=== PATIENT | female | born 1985 | race Caucasian/White ===

== ENCOUNTER → 2019-02-01 12:30 | Outpatient (CLI) | payer OTHER, BC, SELFPAY ==
[2019-02-01 12:51] LABS: Influenza A and B by PCR Rapid Negative (Negative)
== END ==
PROVIDERS: Family Provider Family Medicine; PCP Family Medicine; Visit Provider Physician Assistant
DX: R68.89 Other general symptoms and signs (principal)
CPT/HCPCS: 87400; 87502

== ENCOUNTER → 2020-01-04 09:41 | Outpatient (CLI) | payer BC, SELFPAY ==
--- NOTE | 2020-01-04 09:43 | DI.RAD.S_ITS ---
PROCEDURE: XR SHOULDER RT MIN 2V INDICATIONS: Right shoulder pain, no trauma TECHNIQUE: 3 views of the shoulder were acquired. COMPARISON: None. FINDINGS: Bones: No fracture. Scattered degenerative subchondral sclerosis and spurring. Soft tissues: No suspicious soft tissue calcifications. IMPRESSION: Mild degenerative changes. If the patient's pain or other symptoms persist, consider further evaluation with MRI Dictated by: Erwin Laureano M.D. on 01/04/2020 at 10:23 Approved by: Erwin Laureano M.D. on 01/04/2020 at 10:27
== END ==
PROVIDERS: Family Provider Family Medicine; PCP Family Medicine; Referring Provider Family Medicine; Visit Provider Registered Nurse Diabetes Educator
DX: S46.911A Strain of unspecified muscle, fascia and tendon at shoulder and upper arm level, right arm, initial encounter (principal); M25.511 Pain in right shoulder
CPT/HCPCS: 73030

== ENCOUNTER → 2020-08-04 09:39 | Outpatient (CLI) | payer BC, SELFPAY ==
[2020-08-04 11:50] LABS: BUN Creatinine Ratio 12.6 (6-22); Blood Urea Nitrogen 12 mg/dL (7-17); Carbon Dioxide 29 mmol/L (22-32); Chloride 104 mmol/L (98-107); Cholesterol 233 mg/dL (140-199); Estimated Glomerular Filt Rate > 60.0 mL/min (>60); Glucose 95 mg/dL (70-100); HDL Cholesterol 53 mg/dL (40-60); HEMOLYSIS < 15 (0-50); LDL Cholesterol Calculated 163 mg/dL (<100); Potassium 3.9 mmol/L (3.4-5.1); Sodium 138 mmol/L (137-145); Triglycerides 83 mg/dL (35-150)
== END ==
PROVIDERS: Family Provider Family Medicine; PCP Family Medicine; Referring Provider Family Medicine; Visit Provider Family Medicine
DX: E28.2 Polycystic ovarian syndrome (principal); E66.01 Morbid (severe) obesity due to excess calories
CPT/HCPCS: 36415; 80048; 80061

== ENCOUNTER → 2021-05-28 13:07 | Outpatient (CLI) | payer OTHER, SELFPAY ==
--- NOTE | 2021-05-28 13:08 | DI.RAD.S_ITS ---
PROCEDURE: XR FOOT RT MIN 3V INDICATIONS: heavy object fell on foot TECHNIQUE: 3 views of the foot were acquired. COMPARISON: [facility], , FOOT 3V RIGHT, 01/24/2012, 15:12. FINDINGS: Bones: No fractures or dislocations. No suspicious bony lesions. Large plantar calcaneal bone spur. Mild midfoot osteoarthritis. Soft tissues: No tibiotalar joint effusion. Achilles tendon appears normal. IMPRESSION: No fracture. No acute osseous lesion. If symptoms and/or clinical suspicion for pathology persists, further assessment with repeat radiographs (7-10 days) or advanced imaging (e.g. CT, MRI or bone scan) should be considered. Dictated by: Kenisha Barrientos MD, PhD on 05/28/2021 at 13:28 Approved by: Kenisha Barrientos MD, PhD on 05/28/2021 at 13:29
== END ==
PROVIDERS: Family Provider Family Medicine; PCP Family Medicine; Referring Provider Nurse Practitioner Family; Visit Provider Nurse Practitioner Family
DX: R22.41 Localized swelling, mass and lump, right lower limb (principal); M77.31 Calcaneal spur, right foot; M19.071 Primary osteoarthritis, right ankle and foot
CPT/HCPCS: 73630

== ENCOUNTER → 2022-03-21 08:40 | Outpatient (CLI) | payer OTHER, SELFPAY ==
[2022-03-21 09:32] LABS: Add Manual Diff / Slide Review NO; Basophils Absolute Auto 0 /uL (0-100); Basophils Percent Auto 0.7 % (0-2); Eosinophils Absolute Auto 100 /uL (0-450); Hematocrit 38.4 % (36-46); Hemoglobin 12.5 g/dL (12.0-16.0); Lymphocytes Absolute Auto 1600 /uL (1100-4500); Lymphocytes Percent Auto 24.9 % (25-40); Mean Corpuscular HGB Conc 32.7 % (30-36); Mean Corpuscular Hemoglobin 29.1 PG (26-34); Monocytes Absolute Auto 500 /uL (0-900); Monocytes Percent Auto 7.5 % (3-14); Neutrophils Absolute Auto 4100 /uL (1500-7000); Neutrophils Percent Auto 64.9 % (50-75); Platelet Count 332 X10^3/uL (150-400); Red Blood Cell Count 4.31 X10^6/uL (4.0-5.2); Red Cell Distribution Width 13.6 % (11.6-14.8); White Blood Cell Count 6.3 X10^3/uL (4.5-11.0)
[2022-03-21 10:01] LABS: Alanine Aminotransferase 31 IU/L (<35); Albumin 3.8 g/dL (3.5-5.0); Albumin Globulin Ratio 1.4 (1.0-2.8); Alkaline Phosphatase 54 U/L (38-126); Aspartate Aminotransferase 21 IU/L (14-36); BUN Creatinine Ratio 10.7 (6-22); Bilirubin Total 0.2 mg/dL (0.2-1.3); Blood Urea Nitrogen 9 mg/dL (7-17); Calcium 9.5 mg/dL (8.4-10.2); Carbon Dioxide 24 mmol/L (22-32); Chloride 106 mmol/L (98-107); Cholesterol 187 mg/dL (140-199); Estimated Glomerular Filt Rate > 60 mL/min (>60); Globulin 2.8 g/dL (1.7-4.1); Glucose 126 mg/dL (70-100); HDL Cholesterol 42 mg/dL (40-60); HEMOLYSIS < 15 (0-50); LDL Cholesterol Calculated 126 mg/dL (<100); Potassium 4.2 mmol/L (3.4-5.1); Sodium 137 mmol/L (137-145); Total Protein 6.6 g/dL (6.3-8.2); Triglycerides 94 mg/dL (35-150)
[2022-03-21 10:26] LABS: TSH w/ Reflex to FT4 1.18 uIU/mL (0.47-4.68)
[2022-03-22 09:12] LABS: Insulin Level Total 72.5 uIU/mL (2.6-24.9)
== END ==
PROVIDERS: Family Provider Family Medicine; PCP Family Medicine; Referring Provider Family Medicine; Visit Provider Family Medicine
DX: Z13.29 Encounter for screening for other suspected endocrine disorder (principal); E78.2 Mixed hyperlipidemia; R73.01 Impaired fasting glucose; E28.2 Polycystic ovarian syndrome; E88.81 Metabolic syndrome and other insulin resistance; Z13.0 Encounter for screening for diseases of the blood and blood-forming organs and certain disorders involving the immune mechanism
CPT/HCPCS: 36415; 80053; 80061; 83036; 83525; 84443; 85025

== ENCOUNTER 2022-06-12 14:27 | Emergency (ER) | payer OTHER, SELFPAY ==
[2022-06-12 14:37] VITALS: BP 172/91; PULSE 85; RESP 18; TEMP 36.9; O2SAT 99; BMI 39.3
--- NOTE | 2022-06-12 14:42 | DI.RAD.S_ITS ---
PROCEDURE: XR CHEST 1V INDICATIONS: chest pain TECHNIQUE: One view of the chest was acquired. COMPARISON: None. FINDINGS: Surgical changes and devices: None. Lungs and pleura: Lungs are clear. No pleural effusions or pneumothorax. Mediastinum: Mediastinal contours appear normal. Heart size is normal. Retrocardiac moderate hiatal hernia Bones and chest wall: No suspicious bony lesions. Overlying soft tissues appear unremarkable. IMPRESSION: Moderate hiatal hernia. No acute cardiopulmonary findings Approved by: Oscar Phillips M.D. on 06/12/2022 at 14:21
[2022-06-12 14:58] LABS: Add Manual Diff / Slide Review NO; Basophils Absolute Auto 100 /uL (0-100); Basophils Percent Auto 0.8 % (0-2); Eosinophils Absolute Auto 100 /uL (0-450); Hematocrit 40.4 % (36-46); Hemoglobin 13.3 g/dL (12.0-16.0); Lymphocytes Absolute Auto 1800 /uL (1100-4500); Lymphocytes Percent Auto 20.6 % (25-40); Mean Corpuscular HGB Conc 32.9 % (30-36); Mean Corpuscular Hemoglobin 29.4 PG (26-34); Mean Corpuscular Volume 89.5 fL (80-100); Monocytes Absolute Auto 800 /uL (0-900); Monocytes Percent Auto 9.5 % (3-14); Neutrophils Absolute Auto 6000 /uL (1500-7000); Neutrophils Percent Auto 68.1 % (50-75); Platelet Count 290 X10^3/uL (150-400); Red Blood Cell Count 4.52 X10^6/uL (4.0-5.2); Red Cell Distribution Width 15.5 % (11.6-14.8); White Blood Cell Count 8.8 X10^3/uL (4.5-11.0)
[2022-06-12 15:06] LABS: INR 1.1 (0.9-1.3); Prothrombin Time 12.7 SECONDS (10.1-12.7)
[2022-06-12 15:09] LABS: PTT Partial Thromboplastin Tim 28 SECONDS (26-36)
[2022-06-12 15:14] LABS: Alanine Aminotransferase 27 IU/L (<35); Albumin 4.1 g/dL (3.5-5.0); Albumin Globulin Ratio 1.2 (1.0-2.8); Alkaline Phosphatase 54 U/L (38-126); Aspartate Aminotransferase 23 IU/L (14-36); BUN Creatinine Ratio 14.5 (6-22); Bilirubin Total 0.3 mg/dL (0.2-1.3); Blood Urea Nitrogen 10 mg/dL (7-17); Calcium 9.4 mg/dL (8.4-10.2); Carbon Dioxide 23 mmol/L (22-32); Chloride 103 mmol/L (98-107); Creatine Kinase 34 U/L (30-135); Estimated Glomerular Filt Rate > 60 mL/min (>60); Globulin 3.4 g/dL (1.7-4.1); Glucose 113 mg/dL (70-100); HEMOLYSIS < 15 (0-50); Lipase 1526 U/L (23-300); Magnesium 1.9 mg/dL (1.6-2.3); Potassium 3.8 mmol/L (3.4-5.1); Sodium 138 mmol/L (137-145); Total Protein 7.5 g/dL (6.3-8.2)
[2022-06-12 15:25] LABS: Troponin I < 0.012 ng/mL (0.01-0.034)
[2022-06-12 17:18] VITALS: PULSE 85; O2SAT 97
[2022-06-12 17:19] VITALS: BP 172/97; PULSE 81; O2SAT 99
[2022-06-12 17:30] VITALS: PULSE 79; RESP 18; O2SAT 100
--- NOTE | 2022-06-12 17:32 | DI.US.S_ITS ---
PROCEDURE: US ABDOMEN LIMITED INDICATIONS: ELEVATED LIPASE TECHNIQUE: Real-time scanning was performed of the abdominal and retroperitoneal organs, with image documentation. COMPARISON: None. FINDINGS: Liver: Hyperdense nodule in liver measures 1.4 cm in the left and 1.2 cm in the right hepatic lobe, consistent with hemangioma. Gallbladder: Cholecystectomy Common Bile Duct: 5.9 mm. Pancreas: Unremarkable as visualized IMPRESSION: 1. Small hepatic hemangiomas. Otherwise unremarkable right upper quadrant ultrasound Approved by: Oscar Phillips M.D. on 06/12/2022 at 17:40
--- NOTE | 2022-06-12 17:33 | ED_ITS ---
HPI - Chest Pain General Chief Complaint: Chest Pain Stated Complaint: Chest pain, High BP/HR Time Seen by Provider: 06/12/22 17:27 Source: patient Mode of arrival: Ambulatory Limitations: no limitations History of Present Illness HPI narrative: 37-year-old female smoker with history of GERD and PCOS presents with a chief complaint of a dry cough and some shortness of breath since probably March as well as rapid heart rate earlier in the course of the day up to as high as 120. She states it went away when she was in the waiting room and has not returned. She denies any chest pain and has no nausea or vomiting. She denies any fever or chills. She denies abdominal pain diarrhea or constipation. She has no dysuria, frequency or urgency. She denies any history of blood clot, lower extremity pain, swelling or redness but does have a Mirena IUD and has traveled recently. Related Data Home Medications Medication Instructions Recorded Confirmed cetirizine 10 mg capsule (Zyrtec) 10 mg PO DAILY 11/24/19 08/04/20 cholecalciferol (vitamin D3) 50 50 mcg PO DAILY 11/24/19 08/04/20 mcg (2,000 unit) capsule (Vitamin D3) omeprazole 20 mg capsule,delayed 20 mg PO DAILY 11/24/19 08/04/20 release tumeric PO 11/24/19 08/04/20 levonorgestrel 21 mcg/24 hours (8 intrauterine 07/07/20 08/04/20 yrs) 52 mg intrauterine device (Mirena) Previous Rx's Medication Instructions Recorded spironolactone 50 mg tablet 50 mg PO BID #90 tabs 08/08/20 albuterol sulfate 90 mcg/actuation 2 puff inhalation Q4-6H PRN 03/08/21 aerosol inhaler bronchospasm #8.5 grams Allergies Allergy/AdvReac Type Severity Reaction Status Date / Time No Known Drug Allergies Allergy Verified 08/04/20 09:23 Review of Systems Review of Systems Narrative: GENERAL: See HPI HEENT: Denies sinus pain, ear pain, sore throat, difficulty swallowing, dizziness. RESPIRATORY: See HPI CARDIOVASCULAR: See HPI GASTROINTESTINAL: See HPI : Denies dysuria, frequency, incontinence, hematuria, urinary retention. MUSCULOSKELETAL: denies weakness, joint pain, or bony pain SKIN: Denies rash, skin lesions, or other NEUROLOGIC: Denies weakness, headache, numbness, change in speech, confusion, seizures, incoordination. PSYCHIATRIC: No concerning psychosocial issues. 12 point review of systems is negative except for those stated above Patient History Medical History Acne Anxiety (~1998) Carpal tunnel syndrome (~2009) Chicken pox (~1991) Depression (~1998) GERD (gastroesophageal reflux disease) (~1999) Irregular menstrual cycle (~1999) Painful menstrual periods (~1999) PCOS (polycystic ovarian syndrome) Surgical History Anesthesia History of carpal tunnel repair (~2009) Status post cholecystectomy (~2009) Family History Child Age: 12 WPW (Qugse-Xnikhhqjg-Cerom syndrome) Father Age: 65 Heart disease Grandmother Age: 80 Essential hypertension, hypertension with unspecified goal High cholesterol Mother Age: 64 High cholesterol Grandmother Age: 89 High cholesterol Grandfather Cancer Social History Smoking Status: Current some day smoker alcohol intake: current (2 -3 times a week) substance use type: does not use Smoking Status: Current some day smoker tobacco type: cigarettes alcohol intake frequency: holidays/special occasions only Substance Use Type: marijuana Exam Narrative Exam Narrative: GENERAL: [37] year old patient appears stated age. Well-developed patient, in mild distress. HEAD: Atraumatic. Normocephalic. EYES: Pupils equal round and reactive. Extraocular motions intact. No scleral icterus. No injection or drainage. ENT: Nose without bleeding, purulent drainage. Throat without erythema, tonsillar hypertrophy or exudate. Airway patent. NECK: Trachea midline. Non tender CARDIOVASCULAR: Regular rate and rhythm without murmurs, gallops, or rubs. RESPIRATORY: Clear to auscultation. Breath sounds equal bilaterally. No wheezes, rales, or rhonchi. GASTROINTESTINAL: Abdomen soft, non-tender, nondistended. EXTREMITIES: No edema or joint tenderness. BACK: Nontender without deformity or crepitance. No flank tenderness. NEURO: AOx3. SKIN: No rash or erythema of visible areas Initial Vital Signs Initial Vital Signs: Vital Signs Temperature 98.4 F 06/12/22 14:37 Pulse Rate 85 06/12/22 14:37 Respiratory Rate 18 06/12/22 14:37 Blood Pressure 172/91 H 06/12/22 14:37 Pulse Oximetry 99 06/12/22 14:37 Oxygen Delivery Method 06/12/22 14:37 Course Orders Ordered: ED Orders 06/12/22 14:42 XR chest 1V Stat EKG-12 Lead Stat 06/12/22 14:50 Complete Blood Count AUTO DIFF Stat Comprehensive Metabolic Panel Stat D Dimer Stat Lipase Stat Magnesium Stat Partial Thromboplastin Time Stat Prothrombin Time INR Stat Troponin & CK Cardiac Panel Stat 06/12/22 17:24 COVID19 -Nasal RAPID/Pre-Proc Stat 06/12/22 17:32 US abdomen limited Stat Discontinued Medications Aspirin (Aspirin 81 Mg Chew Tab) 324 mg PO NOW ONE Stop: 06/12/22 14:43 Vital Signs Vital signs: Vital Signs - 8 hr 06/12/22 14:37 06/12/22 17:18 06/12/22 17:19 Temperature 98.4 F Pulse Rate 85 85 81 Respiratory Rate 18 Blood Pressure 172/91 H Pulse Oximetry 99 97 99 Oxygen Delivery Method Room Air 06/12/22 17:19 06/12/22 17:30 Temperature Pulse Rate 79 Respiratory Rate 18 Blood Pressure 172/97 H Pulse Oximetry 100 Oxygen Delivery Method MDM - Chest Pain Lab Data 06/12/22 14:50 06/12/22 14:50 Labs: Lab Results 06/12/22 06/12/22 06/12/22 Range/Units 14:50 14:50 14:50 WBC 8.8 (4.5-11.0) X10^3/uL RBC 4.52 (4.0-5.2) X10^6/uL Hgb 13.3 (12.0-16.0) g/dL Hct 40.4 (36-46) % MCV 89.5 (80-100) fL MCH 29.4 (26-34) PG MCHC 32.9 (30-36) % RDW 15.5 H (11.6-14.8) % Plt Count 290 (150-400) X10^3/uL Neut % (Auto) 68.1 (50-75) % Lymph % (Auto) 20.6 L (25-40) % Henderson % (Auto) 9.5 (3-14) % Eos % (Auto) 1.0 L (2-4) % Baso % (Auto) 0.8 (0-2) % Neut # (Auto) 6000 (2013-1178) /uL Lymph # (Auto) 1800 (3126-2055) /uL Henderson # (Auto) 800 (0-900) /uL Eos # (Auto) 100 (0-450) /uL Baso # (Auto) 100 (0-100) /uL PT 12.7 (10.1-12.7) SECONDS INR 1.1 (0.9-1.3) APTT 28 (26-36) SECONDS D-Dimer (<500) ng/ml Sodium 138 (137-145) mmol/L Potassium 3.8 (3.4-5.1) mmol/L Chloride 103 (98-107) mmol/L Carbon Dioxide 23 (22-32) mmol/L BUN 10 (7-17) mg/dL Creatinine 0.69 (0.52-1.04) mg/dL Estimated GFR > 60 (>60) mL/min BUN/Creatinine Ratio 14.5 (6-22) Glucose 113 H (70-100) mg/dL Calcium 9.4 (8.4-10.2) mg/dL Magnesium 1.9 (1.6-2.3) mg/dL Total Bilirubin 0.3 (0.2-1.3) mg/dL AST 23 (14-36) IU/L ALT 27 (<35) IU/L Alkaline Phosphatase 54 (38-126) U/L Total Creatine Kinase 34 (30-135) U/L CK-MB (CK-2) TNP CK-MB (CK-2) Rel Index TNP Troponin I < 0.012 (0.01-0.034) ng/mL Total Protein 7.5 (6.3-8.2) g/dL Albumin 4.1 (3.5-5.0) g/dL Globulin 3.4 (1.7-4.1) g/dL Albumin/Globulin Ratio 1.2 (1.0-2.8) Lipase 1526 H (23-300) U/L SARS-CoV-2 (PCR) (Negative) 06/12/22 06/12/22 Range/Units 14:50 17:24 WBC (4.5-11.0) X10^3/uL RBC (4.0-5.2) X10^6/uL Hgb (12.0-16.0) g/dL Hct (36-46) % MCV (80-100) fL MCH (26-34) PG MCHC (30-36) % RDW (11.6-14.8) % Plt Count (150-400) X10^3/uL Neut % (Auto) (50-75) % Lymph % (Auto) (25-40) % [place] % (Auto) (3-14) % Eos % (Auto) (2-4) % Baso % (Auto) (0-2) % Neut # (Auto) (3006-1170) /uL Lymph # (Auto) (3032-9635) /uL Henderson # (Auto) (0-900) /uL Eos # (Auto) (0-450) /uL Baso # (Auto) (0-100) /uL PT (10.1-12.7) SECONDS INR (0.9-1.3) APTT (26-36) SECONDS D-Dimer 450 (<500) ng/ml Sodium (137-145) mmol/L Potassium (3.4-5.1) mmol/L Chloride (98-107) mmol/L Carbon Dioxide (22-32) mmol/L BUN (7-17) mg/dL Creatinine (0.52-1.04) mg/dL Estimated GFR (>60) mL/min BUN/Creatinine Ratio (6-22) Glucose (70-100) mg/dL Calcium (8.4-10.2) mg/dL Magnesium (1.6-2.3) mg/dL Total Bilirubin (0.2-1.3) mg/dL AST (14-36) IU/L ALT (<35) IU/L Alkaline Phosphatase (38-126) U/L Total Creatine Kinase (30-135) U/L CK-MB (CK-2) CK-MB (CK-2) Rel Index Troponin I (0.01-0.034) ng/mL Total Protein (6.3-8.2) g/dL Albumin (3.5-5.0) g/dL Globulin (1.7-4.1) g/dL Albumin/Globulin Ratio (1.0-2.8) Lipase (23-300) U/L SARS-CoV-2 (PCR) Negative (Negative) Urine Dip Bedside Urine Glucose Negative Bedside Urine Bilirubin - Negative Bedside Urine Ketone - Negative Urine Specific [place] 1.010 Bedside Urine Occult Blood - Negative Bedside Urine pH 6 Bedside Urine Protein - Negative Bedside Urine Urobilinogen - Negative Bedside Urine Nitrite - Negative Bedside Urine Leukocytes - Negative Esterase MDM Narrative Medical decision making narrative: CC: 37-year-old female with dry cough, shortness of breath, episodes of tachycardia Complicating co-morbidities: History of bronchospasm, control Data collected from: Patient Medical records reviewed: Prior visits evaluated Differential considered, but not limited to: Cardiac ischemia, pulmonary embolism, bronchospasm, pancreatitis, gallbladder versus other Exam documented above, pertinent findings include: Occasional dry bronchospastic cough, no increased work of breathing, no tachycardia, abdomen soft and nontender Lab Test results independently reviewed as above. Pertinent findings: No evidence of leukocytosis, anemia or left shift, electrolytes within normal range, troponin and kidney function normal. Lipase elevated at 15 26, noted that LFTs are in normal range and patient has no pain Independently reviewed EKG as above Imaging studies independently reviewed: Moderate hiatal hernia, US without significant findings Re-evaluations: Asymptomatic for duration of visit Discussion: 37-year-old female had an episode of tachycardia earlier that resolved without intervention. She has no ongoing symptoms, no shortness of breath, no abdominal pain, nausea or vomiting. EKG, labs and imaging are reassuring. No evidence of NC or embolism. Lipase is noted to be elevated, however patient is having absolutely no pain, nausea or vomiting. No indication for further workup, particularly in the setting of reassuring ultrasound. Patient encouraged to follow closely with her primary care Disposition: see below, along with detailed discharge instructions that have been reviewed with patient as well as indications for ED re-evaluation and additional outpatient follow up Discharge Plan Departure Patient Disposition: Home Clinical Impression: Tachycardia, Elevated lipase Instructions: DI for Tachycardia Activity Restrictions/Additional Instructions: *You have been diagnosed with [tachycardia resolved and elevated lipase] *What to do: *Please continue to take your regular medications as directed. *Please follow up with your primary care provider in 2-3 days, call for an appointment. Let them know you were seen in the Emergency Department and that we ask that you be seen in follow up. We will electronically transmit a record of today's note if your PCP is in our system *If you do not have a primary care provider please contact the [facility] Resource line at [phone]. They will ask some questions about your medical history and help get you set up with a doctor in the community. *Return to Emergency Department if you should have any new, worsening or concerning symptoms, such as [fever greater than 101 F, shaking chills, worsening pain, persistent vomiting or other bothersome symptoms] Prescriptions: No Action Mirena 20 mcg/24 hours (6 yrs) 52 mg intrauterine device intrauterine Label Comments: INSERTED 07/07/20 spironolactone 50 mg tablet 50 mg PO BID Qty: 90 2RF albuterol sulfate 90 mcg/actuation HFA aerosol inhaler 2 puff INHALATION Q4-6H PRN (Reason: bronchospasm) Qty: 8.5 0RF Zyrtec 10 mg capsule 10 mg PO DAILY omeprazole 20 mg capsule,delayed release(DR/EC) 20 mg PO DAILY cholecalciferol (vitamin D3) [Vitamin D3] 50 mcg (2,000 unit) capsule 50 mcg PO DAILY tumeric PO Referrals: Rhea Raygoza ARNP [Primary Care Provider] - Stand Alone Forms: Patient Portal/API
[2022-06-12 17:41] LABS: D Dimer 450 ng/ml (<500)
[2022-06-12 18:00] VITALS: PULSE 86; RESP 18; O2SAT 99
[2022-06-12 18:12] LABS: COVID19 -Nasal RAPID Negative (Negative)
[2022-06-12 18:26] VITALS: BP 140/80; PULSE 79; RESP 18; O2SAT 99
== END 2022-06-12 18:26 | disposition home or self-care (01) ==
PROVIDERS: Emergency Provider Emergency Medicine; Family Provider Family Medicine; PCP Family Medicine
DX: R00.0 Tachycardia, unspecified (principal); R74.8 Abnormal levels of other serum enzymes; Z20.822 Contact with and (suspected) exposure to COVID-19
CPT/HCPCS: 36415; 71045; 76705; 80053; 81003; 82550; 83690; 83735; 84484; 85025; 85379; 85610; 85730; 87635; 93005; 99283; 99284; C9803

== ENCOUNTER → 2022-07-10 12:59 | Outpatient (CLI) | payer OTHER, SELFPAY ==
[2022-07-10 13:33] LABS: Hemoglobin A1C% w Est Avg Glu 5.3 % (4.0-6.0)
[2022-07-10 13:39] LABS: Alanine Aminotransferase 26 IU/L (<35); Albumin 3.9 g/dL (3.5-5.0); Albumin Globulin Ratio 1.3 (1.0-2.8); Alkaline Phosphatase 59 U/L (38-126); Aspartate Aminotransferase 22 IU/L (14-36); BUN Creatinine Ratio 12.3 (6-22); Bilirubin Total 0.3 mg/dL (0.2-1.3); Blood Urea Nitrogen 9 mg/dL (7-17); Calcium 9.1 mg/dL (8.4-10.2); Carbon Dioxide 23 mmol/L (22-32); Chloride 106 mmol/L (98-107); Cholesterol 223 mg/dL (140-199); Estimated Glomerular Filt Rate > 60 mL/min (>60); Globulin 3.1 g/dL (1.7-4.1); Glucose 105 mg/dL (70-100); HDL Cholesterol 58 mg/dL (40-60); HEMOLYSIS < 15 (0-50); LDL Cholesterol Calculated 145 mg/dL (<100); Lipase 617 U/L (23-300); Potassium 4.6 mmol/L (3.4-5.1); Sodium 136 mmol/L (137-145); Triglycerides 100 mg/dL (35-150)
[2022-07-12 12:21] LABS: Insulin Level Total 32.7 uIU/mL (2.6-24.9)
== END ==
PROVIDERS: Family Provider Family Medicine; PCP Family Medicine; Referring Provider Family Medicine; Visit Provider Family Medicine
DX: R73.01 Impaired fasting glucose (principal); R74.8 Abnormal levels of other serum enzymes; E78.2 Mixed hyperlipidemia
CPT/HCPCS: 36415; 80053; 80061; 83036; 83525; 83690